=== PATIENT | male | born 1935 | race Caucasian/White ===

== ENCOUNTER 2016-10-24 07:35 | Emergency (ER) | payer MEDICARE, BC ==
[~2016-10-24 07:35] MED LIST: AMIODARONE HCL100 MG PO; AMIODARONE PO; AMITRIPTYLINE H25 MG PO; ASPIRIN PO; ASPIRIN81 M1 PO; ASPIRIN81 MG PO; B COMPLEX1 TAB PO; B-COMPLEX1 TAB PO; CARTIA XT PO; CLARITIN10 M3 PO; COUMADIN PO; COUMADIN5 MG PO; COUMADIN7.5 MG PO; DILTIAZEM ER120 M1 PO; DIOVAN PO; FERROUS GL324 ( 36 ); FERROUS GLUCON324 MG PO; HYDRALAZINE HCL25 MG PO; HYDROCHLOROTH12.5 M1; HYDROCHLOROTH12.5 M1 PO; HYDROCHLOROTH12.5 MG PO; HYDROXYZINE HCL25 M1 PO; HYDROXYZINE PAM25 MG PO; IRON1 TAB PO; LISINOPRIL PO; LISINOPRIL20 MG PO; NASONEX17 GM; PACERONE100 MG PO; PANTOPRAZOLE SO40 MG PO; PLAVIX PO; PRAVASTATIN SOD40 MG; PRAVASTATIN SOD40 MG PO; PROAIR RESPICL90 MCG; PROAIR RESPICL90 MCG INH; PROTONIX PO; SERTRALINE HCL50 M1 PO; SPIRIVA18 MCG INH; VITAMIN B COMPLEX; VITAMIN D 22000 UNIT PO
[2016-10-24 07:57] LABS: BASOPHIL% 0.2 % (0-2.5); EOSINOPHIL# 0.1 X10e3 (0-0.7); HEMATOCRIT 29.7 % (38.0-50.0); HEMOGLOBIN 10.1 gm/dL (13.0-16.0); LYMPHOCYTE# 0.7 X10e3 (1.0-3.5); LYMPHOCYTE% 7.2 % (17.0-45.0); MEAN CELL VOLUME 99.9 FL (83-96); MEAN CORPUSCULAR HEMOGLOBIN 34.1 PG (28-34); MEAN CORPUSCULAR HGB CONC 34.2 g/dL (30-36); MEAN PLATELET VOLUME 5.9 FL (6.5-11.5); MONOCYTE# 0.9 X10e3 (0-1.0); NEUTROPHIL# 8.1 X10e3 (1.5-7.1); NEUTROPHIL% 82.6 % (40-75); PLATELET COUNT 328 X10e3 (140-420); RED BLOOD COUNT 2.97 X10e (3.90-5.60); RED CELL DISTRIBUTION WIDTH 13.4 % (11.0-15.5); WHITE BLOOD COUNT 9.8 X10e3 (4.0-10.5)
[2016-10-24 08:10] LABS: PARTIAL THROMBOPLASTIN TIME 25.7 SECONDS (23.5-31.3); PROTHROMBIN TIME (PATIENT) 10.6 SECONDS (9.6-11.5)
[2016-10-24 08:12] LABS: DIFF IND NO
[2016-10-24 08:22] LABS: ALBUMIN SERUM 3.8 g/dL (3.5-5.0); ALKALINE PHOSPHATASE 46 U/L (32-92); ALT (SGPT) 20 U/L (10-40); AST (SGOT) 28 U/L (10-42); BILIRUBIN, DIRECT 0.1 mg/dL (0.0-0.2); BILIRUBIN,INDIRECT 0.4 mg/dL (0.0-0.9); BILIRUBIN,TOTAL 0.5 mg/dL (0.2-2.0); BLOOD UREA NITROGEN 26 mg/dL (9-23); BUN/CREATININE RATIO 23.63; CALCIUM SERUM 8.7 mg/dL (8.4-10.2); CARBON DIOXIDE 27 mmol/L (22-31); CHLORIDE 96 mmol/L (100-111); CREATININE SERUM 1.1 mg/dL (0.6-1.4); GLOM FILT RATE Estimated ABOVE60 mL/min (>60); GLUCOSE FASTING 107 mg/dL (70-110); POTASSIUM 4.4 mmol/L (3.5-5.1); PROTEIN TOTAL SERUM 6.4 g/dL (6.0-8.3); SODIUM 129 mmol/L (135-145)
[2017-05-10] MEDS ORDERED: LISINOPRIL5 MG PO (22:17)
[2017-05-10] MEDS ORDERED: HYDRALAZINE HC100 MG PO (22:18)
[2017-05-10] MEDS ORDERED: FLOMAX0.4 M1 PO (22:19)
[2017-05-10] MEDS ORDERED: NASONEX17 GM (22:19)
== END 2016-10-24 09:07 | disposition home or self-care (01) ==
LOC: CED 07:35
PROVIDERS: Emergency Medicine
DX: R04.0 Epistaxis (principal); F17.200 Nicotine dependence, unspecified, uncomplicated; Z88.8 Allergy status to other drugs, medicaments and biological substances; Z79.899 Other long term (current) drug therapy; Z79.82 Long term (current) use of aspirin
CPT/HCPCS: 30903; 30905; 36415; 80048; 80076; 85025; 85610; 85730; 99283